=== PATIENT | female | born 1995 | race Hispanic/Latino ===

== ENCOUNTER 2021-03-12 17:28 | Emergency (ER) | payer SELFPAY ==
[2021-03-12 19:17] LABS: Bilirubin Neg (Negative); Blood, Urine 250 (Negative); Clarity Clear (Clear); Glucose, Urine (Dipstick) Normal (Negative); Ketone, Urine Negative (Negative); Leukocyte 500 (Negative); Nitrite Negative (Negative); Protein, Urine (Dipstick) Negative (Neg-Trace); Urobilinogen Normal mg/dL (Less than 2)
[2021-03-12 19:20] LABS: Pregnancy Test - Urine (BHCG) Negative (Negative); Pregu Control Background? CLEAR/WHITE (CLR/WHITE); Pregu Control Bar Appear? YES (CONTROL BAR)
[2021-03-12 19:25] LABS: #Eosinphils 0.2 10x3/uL (0.0-0.5); #Monocytes 0.6 10x3/uL (0.0-1.1); #Neutrophils 2.1 10x3/uL (1.5-8.4); %Basophils 0.7 % (0.0-2.0); %Eosinophils 2.7 % (0.0-6.0); %Lymphocytes 48.6 % (18.0-47.0); %Monocytes 10.6 % (0.0-10.0); %Neutrophils 37.2 % (40.0-75.0); Mean Corpuscular HGB CONC 32.9 g/dL (32.0-36.0); Mean Corpuscular Hemoglobin 31.1 pg (27.0-33.0); Mean Corpuscular Volume 94.4 fl (81.6-98.3); Mean Platelet Volume 9.6 fl (7.4-10.4); Platelet Count 273 10x3/uL (150-450); RBC Distribution Width 11.9 % (11.5-14.5); White Blood Cell (WBC) Count 5.7 10x3/uL (3.5-10.5)
[2021-03-12 19:27] LABS: Bacteria/HPF 3+ HPF (None Seen); Mucous/LPF 2+ LPF (<2+); RBC/HPF 0-3 HPF (0-3); Transitional Epithelial 0-3 HPF (None Seen)
[2021-03-12 19:35] LABS: ALT (SGPT) 20 U/L (8-55); AST (SGOT) 19 U/L (5-34); Albumin 4.8 g/dL (3.5-5.0); Alkaline Phosphatase 84 U/L (40-110); Anion Gap 13 mmol/L (10-20); BUN (Urea Nitrogen) 8 mg/dL (7.0-18.7); Bilirubin, Total 0.3 mg/dL (0.2-1.2); Calc. Creatinine Clearance 0 mL/min (70-130); Calcium 9.9 mg/dL (7.8-10.44); Carbon Dioxide 28 mmol/L (22-29); Chloride 104 mmol/L (98-107); Globulin 3.9 g/dL (2.4-3.5); Glucose 82 mg/dL (70-105); Lipase 38 U/L (8-78); Potassium 3.6 mmol/L (3.5-5.1); Protein, Total 8.7 g/dL (6.0-8.3); Sodium 141 mmol/L (136-145)
== END 2021-03-12 20:43 | disposition home or self-care (01) ==
LOC: CSHERS 17:28
DX: N39.0 Urinary tract infection, site not specified (principal); N92.6 Irregular menstruation, unspecified
CPT/HCPCS: 80053; 81003; 81015; 81025; 82274; 83690; 85025; 99284

== ENCOUNTER 2022-01-10 02:40 | Day surgery (SDC) | payer SELFPAY ==
[2022-01-10 04:11] LABS: SARS-CoV-2 NAA Rapid Test Not Detected (NotDetected)
[2022-01-10 04:58] VITALS: BMI 26.9
[2022-01-10] MEDS ORDERED: hydrALAZINE 20 MG/ML VIAL SLOW IVP PRN ×2 (05:09→09:45)
[2022-01-10] MEDS ORDERED: Lactated Ringer's 1,000 ML IV SCH ×4 (05:15→12:45)
[2022-01-10] MEDS ORDERED: Acetaminophen 500 MG TAB PO SCH (06:15)
[2022-01-10] MEDS ORDERED: cefTRIAXone\\ROCEPHIN 2 GM in Sodium Chloride 0.9% 100 ML IVPB SCH (06:30)
[2022-01-10 06:31] LABS: Bilirubin Neg (Negative); Blood, Urine Negative (Negative); Clarity Clear (Clear); Glucose, Urine (Dipstick) Normal (Negative); Ketone, Urine Negative (Negative); Leukocyte 25 (Negative); Nitrite Negative (Negative); Protein, Urine (Dipstick) Negative (Neg-Trace); Urobilinogen Normal mg/dL (Less than 2)
[2022-01-10 06:44] LABS: Bacteria/HPF Rare-Few HPF (None Seen); RBC/HPF 0-3 HPF (0-3); Transitional Epithelial 0-3 HPF (None Seen)
[2022-01-10 06:48] LABS: Hemoglobin 11.8 g/dL (12.0-15.5); Mean Corpuscular HGB CONC 34.9 g/dL (32.0-36.0); Mean Corpuscular Hemoglobin 30.1 pg (27.0-33.0); Mean Corpuscular Volume 86.2 fl (81.6-98.3); Mean Platelet Volume 10.6 fl (7.4-10.4); Platelet Count 212 10x3/uL (150-450); RBC Distribution Width 13.2 % (11.5-14.5); Red Blood Cell (RBC) Count 3.92 10x6/uL (3.90-5.03)
[2022-01-10 06:49] LABS: Fetal Fibronectin POSITIVE (Negative)
[2022-01-10 06:50] LABS: FFN Internal QC Analyzer PASS (PASS); FFN Internal QC Cassette PASS (PASS)
[2022-01-10 06:51] LABS: ALT (SGPT) 13 U/L (8-55); AST (SGOT) 18 U/L (5-34); Albumin 3.1 g/dL (3.5-5.0); Alkaline Phosphatase 175 U/L (40-110); Anion Gap 16 mmol/L (10-20); BUN (Urea Nitrogen) 5 mg/dL (7.0-18.7); Bilirubin, Total 0.3 mg/dL (0.2-1.2); Calc. Creatinine Clearance 137 mL/min (70-130); Calcium 8.7 mg/dL (7.8-10.44); Carbon Dioxide 20 mmol/L (22-29); Chloride 106 mmol/L (98-107); Estimated GFR 128; Globulin 3.1 g/dL (2.4-3.5); Glucose 101 mg/dL (70-105); Potassium 3.6 mmol/L (3.5-5.1); Protein, Total 6.2 g/dL (6.0-8.3); Sodium 138 mmol/L (136-145)
[2022-01-10 06:53] LABS: MDiff Complete? YES
[2022-01-10 07:30] LABS: Band 25 % (5-11); Lymphocytes 4 % (21-51); Monocytes 1 % (0-10); Neutrophil 70 % (42-75); Platelet Morphology Comment Appears Adequate
[2022-01-10 07:31] LABS: RBC Morphology Normal
[2022-01-10 07:33] LABS: Lactic Acid 3.5 mmol/L (0.5-2.2)
[2022-01-10 08:38] LABS: Fetal Membranes Rupture No Membranes Rupture (No Rupture)
[2022-01-10] MEDS ORDERED: metroNIDAZOLE 500 MG TAB PO SCH (09:00)
[2022-01-10] MEDS ORDERED: Ondansetron PF 4 MG/2 ML Vial IVP PRN (09:45)
[2022-01-10] MEDS ORDERED: Promethazine HCl 25 MG/ML VIAL IM PRN (09:45)
[2022-01-10 11:01] LABS: Bilirubin Neg (Negative); Blood, Urine Negative (Negative); Clarity Slightly Cloudy (Clear); Glucose, Urine (Dipstick) Normal (Negative); Ketone, Urine 150 mg/dL (Negative); Leukocyte Negative (Negative); Nitrite Negative (Negative); Protein, Urine (Dipstick) 30 mg/dl (Neg-Trace); Urobilinogen Normal mg/dL (Less than 2); pH, Urine 6.5 (5.0-9.0)
[2022-01-10 11:12] LABS: Bacteria/HPF None Seen HPF (None Seen); RBC/HPF 0-3 HPF (0-3); Squamous Epithelial 0-3 HPF (0-3); WBC/HPF 0-3 HPF (0-3)
[2022-01-10 14:04] LABS: Lactic Acid 2.6 mmol/L (0.5-2.2)
[2022-01-10 17:11] LABS: GC by PCR Not Detected (NotDetected)
== END 2022-01-10 14:40 | disposition home health service (06) ==
LOC: CSHERS 02:40 → CSHLD/OP 04:29
PROVIDERS: ATTEND Obstetrics & Gynecology
DX: O47.03 False labor before 37 completed weeks of gestation, third trimester (principal); O36.8330 Maternal care for abnormalities of the fetal heart rate or rhythm, third trimester, not applicable or unspecified; O99.891 Other specified diseases and conditions complicating pregnancy; R50.9 Fever, unspecified; R07.89 Other chest pain; O23.593 Infection of other part of genital tract in pregnancy, third trimester; N89.8 Other specified noninflammatory disorders of vagina; O99.113 Other diseases of the blood and blood-forming organs and certain disorders involving the immune mechanism complicating pregnancy, third trimester; D72.825 Bandemia; Z20.822 Contact with and (suspected) exposure to COVID-19; Z79.899 Other long term (current) drug therapy; Z3A.30 30 weeks gestation of pregnancy
CPT/HCPCS: 36415; 51701; 71045; 76770; 80053; 81001; 82731; 83605; 84112; 85025; 87086; 87480; 87510; 87591; 87660; 87804; 93005; 93010; 99285; J0696; J3490; U0002

== ENCOUNTER 2022-02-14 11:01 | Inpatient (IN) | payer MEDICAID, SELFPAY ==
[2022-02-14] MEDS ORDERED: Methylergonovine 0.2 MG/ML VIAL IM PRN ×2 (12:26→17:51)
[2022-02-14] MEDS ORDERED: Lidocaine 1% (PF) 30 ML VIAL SC PRN (12:26)
[2022-02-14] MEDS ORDERED: Carboprost 250 MCG/ML AMP IM PRN (12:26)
[2022-02-14] MEDS ORDERED: Ibuprofen 800 MG TAB PO PRN (12:26)
[2022-02-14] MEDS ORDERED: Acetaminophen 500 MG TAB PO PRN (12:26)
[2022-02-14] MEDS ORDERED: Promethazine HCl 25 MG/ML VIAL IM PRN ×2 (12:26→12:47)
[2022-02-14] MEDS ORDERED: Ondansetron PF 4 MG/2 ML Vial IVP PRN ×3 (12:26→17:51)
[2022-02-14] MEDS ORDERED: Misoprostol 200 MCG TAB PR PRN (12:26)
[2022-02-14] MEDS ORDERED: hydrALAZINE 20 MG/ML VIAL SLOW IVP PRN ×2 (12:26→17:51)
[2022-02-14] MEDS ORDERED: Penicillin G Potassium 5 MILL.UNITS in Sodium Chloride 0.9% 100 ML IVPB SCH (12:30)
[2022-02-14] MEDS ORDERED: Betamet Acet/Betamet Na Ph 30 MG/5 ML VIAL ONE (12:30)
[2022-02-14] MEDS ORDERED: Penicillin G Potassium 5 MILL.UNITS VIAL ONE (12:30)
[2022-02-14] MEDS: Lactated Ringer's 1,000 ML IV SCH ×2 (12:32→13:00)
[2022-02-14 12:34] VITALS: BMI 28.5
[2022-02-14] MEDS ORDERED: Fentanyl 2 mcg/Bup 0.1% Cadd 100 ML ONE (12:44)
[2022-02-14] MEDS ORDERED: Betamet Acet/Betamet Na Ph 30 MG/5 ML VIAL IM SCH (12:45)
[2022-02-14] MEDS ORDERED: ePHEDrine Sulfate 50 MG/10 ML VIAL SLOW IVP PRN (12:47)
[2022-02-14] MEDS ORDERED: Naloxone HCl 0.4 mg/ml Vial IVP PRN ×2 (12:47)
[2022-02-14] MEDS ORDERED: Moisturizing Cream (Eucerin) 113 GM JAR TOP PRN (12:47)
[2022-02-14] MEDS ORDERED: diphenhydrAMINE 50 MG/ML VIAL IVP PRN (12:47)
[2022-02-14 12:53] LABS: Hemoglobin 10.1 g/dL (12.0-15.5); Mean Corpuscular HGB CONC 32.9 g/dL (32.0-36.0); Mean Corpuscular Hemoglobin 28.2 pg (27.0-33.0); Mean Corpuscular Volume 85.8 fl (81.6-98.3); Mean Platelet Volume 11.5 fl (7.4-10.4); Platelet Count 231 10x3/uL (150-450); RBC Distribution Width 14.6 % (11.5-14.5); Red Blood Cell (RBC) Count 3.58 10x6/uL (3.90-5.03); White Blood Cell (WBC) Count 8.2 10x3/uL (3.5-10.5)
[2022-02-14] MEDS ORDERED: Lactated Ringer's 500 ML IV PRN (12:59)
[2022-02-14] MEDS ORDERED: Fentanyl 2 mcg/Bupivacaine 0.1% Cassette 100 ML EPIDURAL SCH (13:00)
[2022-02-14] MEDS ORDERED: Communication Order-Pharmacy FS SCH (13:00)
[2022-02-14 13:15] LABS: HBSAg Index 0.13 S/CO (0-0.99); Hep B Surf Ag Non-Reactive S/CO (NonReactive)
[2022-02-14 14:02] LABS: Syphilis Antibody Nonreactive (Nonreactive); Syphilis Antibody Index 0.04 S/CO (<1.00 Non-Reactive)
[2022-02-14] MEDS: NS w/ Oxytocin 30 units 500 ML IV SCH ×2 (14:22→15:17)
[2022-02-14 15:10] LABS: SARS-CoV-2 NAA Rapid Test DETECTED (NotDetected)
[2022-02-14] MEDS ORDERED: Penicillin G 2.5 MILL.units 2.5 MILL.UNITS in Premix Bag 1 BAG IVPB SCH (16:30)
[2022-02-14] MEDS ORDERED: Bupivacaine 0.25% HCL 30 ML VIAL ONE (16:47)
[2022-02-14] MEDS ORDERED: Misoprostol 200 MCG TAB VAG PRN (17:51)
[2022-02-14] MEDS ORDERED: NS w/ Oxytocin 30 units 500 ML IV SCH (17:51)
[2022-02-14] MEDS ORDERED: Benzocaine-Menthol 82.5 ML CAN TOP PRN (17:51)
[2022-02-14] MEDS ORDERED: Milk Of Magnesia 30 ML UDCUP PO PRN (17:51)
[2022-02-14] MEDS ORDERED: Preparation H Ointment 28 GM TUBE PR PRN (17:51)
[2022-02-14] MEDS ORDERED: Bisacodyl 10 MG SUPP PR PRN (17:51)
[2022-02-14] MEDS ORDERED: Lanolin Ointment 7 GM TUBE TOP PRN (17:51)
[2022-02-14] MEDS ORDERED: Boostrix 0.5 ML (Tdap) VIAL (>/=7 yrs of age) IM ONE (17:51)
[2022-02-14] MEDS ORDERED: diphenhydrAMINE 25 MG CAP PO PRN (17:51)
[2022-02-14] MEDS: Ferrous Sulfate 325 MG TAB PO SCH (18:52)
[2022-02-14] MEDS: Ibuprofen 800 MG TAB PO SCH (21:05)
[2022-02-14] MEDS: Docusate 100 MG CAP PO SCH (21:05)
[2022-02-15 05:44] LABS: Hemoglobin 7.9 g/dL (12.0-15.5)
[2022-02-15] MEDS: Ibuprofen 800 MG TAB PO SCH ×3 (05:51→20:48)
[2022-02-15] MEDS: Acetaminophen 325 MG TAB PO PRN (08:30)
[2022-02-15] MEDS: Ferrous Sulfate 325 MG TAB PO SCH ×2 (08:30→17:51)
[2022-02-15] MEDS: Docusate 100 MG CAP PO SCH ×2 (08:30→20:48)
[2022-02-15] MEDS: Prenatal Vitamin 1 TAB PO SCH (08:30)
[2022-02-16] MEDS: Ibuprofen 800 MG TAB PO SCH ×2 (05:50→15:56)
[2022-02-16 05:56] LABS: Mean Corpuscular HGB CONC 32.9 g/dL (32.0-36.0); Mean Corpuscular Hemoglobin 28.5 pg (27.0-33.0); Mean Corpuscular Volume 86.6 fl (81.6-98.3); Mean Platelet Volume 11.1 fl (7.4-10.4); Platelet Count 226 10x3/uL (150-450); Red Blood Cell (RBC) Count 2.46 10x6/uL (3.90-5.03); White Blood Cell (WBC) Count 11.4 10x3/uL (3.5-10.5)
[2022-02-16] MEDS: Ferrous Sulfate 325 MG TAB PO SCH (08:35)
[2022-02-16] MEDS: Docusate 100 MG CAP PO SCH (08:35)
[2022-02-16] MEDS: Prenatal Vitamin 1 TAB PO SCH (08:36)
[2022-02-16] MEDS: Acetaminophen 325 MG TAB PO PRN (08:36)
[2022-02-16 13:28] VITALS: BP 117/66; TEMP 98.2
[2022-02-16 16:06] LABS: Hemoglobin 8.2 g/dL (12.0-15.5); Mean Corpuscular HGB CONC 32.9 g/dL (32.0-36.0); Mean Corpuscular Hemoglobin 27.8 pg (27.0-33.0); Mean Corpuscular Volume 84.4 fl (81.6-98.3); Mean Platelet Volume 10.5 fl (7.4-10.4); Platelet Count 228 10x3/uL (150-450); Red Blood Cell (RBC) Count 2.95 10x6/uL (3.90-5.03); White Blood Cell (WBC) Count 11.2 10x3/uL (3.5-10.5)
== END 2022-02-16 17:25 | disposition home or self-care (01) | DRG 805 ==
LOC: CSHLD/OP 11:01 → CSHLD 13:28 → CSHANTE 17:30 → UNDODISIN 02-16 13:10
PROVIDERS: ADMIT Obstetrics & Gynecology; ATTEND Obstetrics & Gynecology
PROC: 10E0XZZ Delivery of Products of Conception, External Approach (ICD-10-PCS; principal; 2022-02-14)
PROC: 8E0ZXY6 Isolation (ICD-10-PCS; 2022-02-14)
PROC: 30233N1 Transfusion of Nonautologous Red Blood Cells into Peripheral Vein, Percutaneous Approach (ICD-10-PCS; 2022-02-16)
DX: O60.14X0 Preterm labor third trimester with preterm delivery third trimester, not applicable or unspecified (principal); O45.93 Premature separation of placenta, unspecified, third trimester; Z37.0 Single live birth; U07.1 COVID-19; O98.32 Other infections with a predominantly sexual mode of transmission complicating childbirth; O72.1 Other immediate postpartum hemorrhage; O98.52 Other viral diseases complicating childbirth; Z3A.35 35 weeks gestation of pregnancy; A56.02 Chlamydial vulvovaginitis; O99.02 Anemia complicating childbirth; D64.9 Anemia, unspecified
CPT/HCPCS: 36415; 36430; 51702; 85014; 85018; 85027; 86780; 86850; 86900; 86901; 87340; 88307; 99285; J0702; J2001; J2210; J2540; J2590; J7120; P9016; S0020; U0002